=== PATIENT | female | born 1950 | race Caucasian/White ===

== ENCOUNTER 2023-03-23 08:00 | Outpatient (CLI) | payer MEDICARE, OTHER ==
--- NOTE | 2023-03-23 16:59 | XRAY Report ---
PROCEDURE: Lumbar Spine Complete INDICATIONS: CONTUSION OF LOWER BACK TECHNIQUE: 5 views of the lumbar spine were acquired. COMPARISON: None. FINDINGS: Bones: 5 [id number] vertebrae are present. Multilevel disc space narrowing and endplate osteop hyte formation, as well as facet hypertrophy. 8 mm of anterolisthesis of L4 and L5. There is otherwis e normal bony alignment. Moderate chronic appearing L1 wedging. No acute appearing vertebral body co mpression fractures. No suspicious bony lesions. Soft tissues: Overlying bowel gas pattern is normal. No suspicious soft tissue calcifications. IMPRESSION: 1. Multilevel degenerative disc and facet disease. 2. No acute fracture. No osseous lesion. If symptoms and/or clinical suspicion for pathology continue , further assessment with repeat plain films, or advanced imaging (e.g., CT, MRI, or bone scan) is re commended for further assessment. 3. Chronic appearing moderate L1 compression fracture. Reviewed by: Amie Bowman MD on 03/23/2023 4:57 PM PDT Approved by: Amie Bowman MD on 03/23/2023 4:57 PM PDT Station ID: [id number]
== END 2023-03-23 23:59 | disposition home or self-care (01) ==
LOC: DI.S 08:00
PROVIDERS: ATTEND Physician Assistant Medical
DX: M47.816 Spondylosis without myelopathy or radiculopathy, lumbar region (principal); M51.36 Other intervertebral disc degeneration, lumbar region; M48.56XA Collapsed vertebra, not elsewhere classified, lumbar region, initial encounter for fracture; M43.16 Spondylolisthesis, lumbar region